=== PATIENT | female | born 1940 | race Caucasian/White ===

== ENCOUNTER 2016-09-24 21:57 | Observation (INO) | payer MEDICARE, BC ==
[~2016-09-24] VITALS: Ht 154.9 cm; Wt 109.7 kg
--- NOTE | ~2016-09-24 | ECH ---
Transthoracic Echocardiography Report (TTE) Demographics Patient Name FE BATISTA Date of Study 09/25/2016 Patient Number [id number] Visit Number [id number] Date of 1940 Room Number 418 Accession Number [id number] Gender Female Age 76 year(s) Referring Tom Rivero Rossy Veterinary Assistant Technician Kimi Bazan Physician RDCS Physician Interpreting Francisco Ellison MD Power Hammer Operator Physician Supervising Ordering Physician Almita PINZON MD/ERWIN Guzman Nurse Stress Rubber Belt Splicer Conclusions Summary Technically adequate exam. The estimated left ventricular ejection fraction is 60%. The left ventricle is moderately dilated . Diastolic assessment reveals Grade I diastolic dysfunction. Procedure Type of Study TTE procedure:Echo Complete SF. Procedure Date Date: 09/25/2016 Start: 03:36 PM Technical Quality: Adequate visualization Indications:Chest pain, Coronary artery disease and Hypertension. Additional Indications:History of stents Appropriate Use Criteria: 9 Height: 61 inches Weight: 241 pounds BSA: 2.04 m Rhythm: NSR HR: 72 bpm BP: 108/53 mmHg M-Mode/2D Measurements LV Diastolic Dimension: 5.82 cm LV Systolic Dimension: 4 cm LV Septum Diastolic: 0.81 cm LV PW Diastolic: 0.81 cm AO Root Dimension: 2.91 cm Cardiac Output: 5.43 l/min LA Dimension: 3.42 cm Cardiac Index: 2.66 l/min*m RV Diastolic Dimension: 1.93 cm LA volume index: 19 ml/m LVOT: 1.84 cm LVOT VTI: 28.38 cm RV Base: 2.6 cm LV Stroke volume: 75.43 ml RV Mid: 1.9 cm LV Stroke volume index: 36.98 ml/m TAPSE: 2.7 cm TDI-S': 15 cm/s Doppler Measurements AV Peak Velocity: 1.7 m/s MV Peak E-Wave: 0.88 m/s AV Peak Gradient: 11.56 mmHg MV Peak A-Wave: 1.08 m/s AV Mean Gradient: 5.29 mmHg MV E/A Ratio: 0.81 LVOT Peak Velocity: 1.32 m/s MV P1/2t: 58.9 msec AV Area (Continuity):2.78 cm MV Deceleration Time: 149.2 msec TR Velocity:2.13 m/s MV Area (PHT): 3.74 cm TR Gradient:18.23 mmHg PV Peak Velocity: 1.16 m/s Estimated RAP:3 mmHg PV Peak Gradient: 5.39 mmHg Estimated RVSP: 21 mmHg Estimated PASP: 21.23 mmHg E' Septal Velocity: 0.09 m/s A' Septal Velocity: 0.13 m/s E' Lateral Velocity: 0.08 m/s A' Lateral Velocity: 0.13 m/s RA Area: 10.69 cm Findings Left Ventricle The left ventricle is moderately dilated . Diastolic assessment reveals Grade I diastolic dysfunction. Right Ventricle Normal right ventricle structure and function. Left Atrium Normal left atrial size. Right Atrium Normal right atrial size. Mitral Valve Normal mitral valve structure and function. Trivial mitral regurgitation by color Doppler. Aortic Valve The aortic valve was not well imaged. Tricuspid Valve Normal tricuspid valve structure and function. Trivial tricuspid regurgitation by color Doppler. Normal pulmonary pressures. Pulmonic Valve The pulmonic valve is not well visualized. Pericardial Effusion No evidence of pericardial effusion. Miscellaneous Visualized portions of the aortic root and ascending aorta appear normal in size. Pleural Effusion No evidence of pleural effusion. Signature
[2016-09-26] MEDS ORDERED: PRILOSEC DPS20 MG PO (14:27)
[2016-09-26] MEDS ORDERED: SYNTHROID DP0.125 MG PO (14:27)
[2016-09-26] MEDS ORDERED: LISINOPRIL5 MG PO (14:28)
[2016-09-26] MEDS ORDERED: CELEBREX50 MG PO (14:28)
[2016-09-26] MEDS ORDERED: LEXAPRO DPS10 MG PO (14:28)
[2016-09-26] MEDS ORDERED: ASPIR 8181 MG PO (14:28)
[2016-09-26] MEDS ORDERED: MAALOX DPS30 ML PO (14:29)
--- NOTE | 2016-09-28 13:05 | CO ---
ADMIT: 09/25/2016 RM/LOC: 418 [facility] MR#: [id number] [id number] [place], [place] [address] DAYNA BATISTA [address] [place] [address] Consultation SEX: F AGE: 76 : 1940 CORRECTED: 09/25/2016 1820 vdg DATE OF CONSULTATION: 09/25/2016 ATTENDING PHYSICIAN: Josefa Santos CONSULTING PHYSICIAN: Thomas Recio MD REASON FOR CONSULT: Chest pain. Julienne Loya RN scribing for Thomas Recio MD HISTORY OF PRESENT ILLNESS: Dayna is a pleasant 76-year-old female, I have been asked to see in Cardiology consultation by Dr. Josefa Snatos for chest discomfort. She has no prior history of coronary artery disease but does have history of hypertension, former tobacco use and family history of premature coronary artery disease with her father dying of a myocardial infarction at the age of 62. She also had brother with congenital heart disease requiring heart transplant. Dayna presented to [facility] with complaints of chest discomfort. She described her symptoms starting about 4:30 yesterday while she was sowing in her basement. She had a sharp pain, stabbing into her chest, radiating to her back, followed by a burning sensation in the front as well. She also thought it radiated into her neck as well. She was short of breath with this. She denies any lightheadedness, palpitations, nausea, or diaphoresis. She stated that she tried to go upstairs, but she found it more difficult than usual. She did rest upstairs, she tried some Tums, which did not help her symptoms. She continued to remain so, she presented to the emergency room. In the ER, she was given nitroglycerin x2 which did help her symptoms somewhat. She also received GI cocktail at that time and then her pain resolved. Cardiac enzymes x2 have been negative. EKG looks okay. Her lab work is essentially normal. Vital signs have been stable. Currently, she is pain free at rest. PAST MEDICAL HISTORY: Hypertension, former tobacco use, gastroesophageal reflux disease, hypothyroidism, osteoarthritis, gallbladder disease status post cholecystectomy, cataract status post left cataract extraction. PAST SURGICAL HISTORY: Includes cholecystectomy, appendectomy, bilateral total knee arthroplasty, and left cataract extraction. ALLERGIES: NO KNOWN MEDICATION ALLERGIES. MEDICATIONS: Current medications include: 1. Omeprazole 20 daily. 2. Lexapro 10 daily. 3. Synthroid 125 mcg daily. 4. Lisinopril 5 daily. 5. Celebrex 200 daily. 6. Aspirin 81 mg daily. ADMIT: 09/25/2016 RM/LOC: 418 [facility] MR#: [id number] [address] [address] DAYNA BATISTA [address] [place] [address] Consultation SEX: F AGE: 76 : 1940 FAMILY HISTORY: Positive family history of coronary disease with father dying of a myocardial infarction at the age of 62, brother had a heart transplant due to congenital defect. Mom at the age of 95, mom had a history of diabetes. No family history of cancer or stroke. SOCIAL HISTORY: Dayna is . She lives at home with her . She is retired. She goes to exercise classes 2 times a week. She drinks two cups of coffee a day. She denies any special diet, alcohol, or drug use. She quit smoking around 2000 after starting at the age of 19. REVIEW OF SYSTEMS: GENERAL: Denies fatigue, fever, chills, sweats, rash, or weight loss. EYES: Left cataract extraction. She has history of corrective lens use. Denies glaucoma. THROAT, MOUTH, AND EARS: Some sinus congestion with allergies. No hearing loss or sore throat. PULMONARY: Denies cough, sputum production, asthma, emphysema or bronchitis. Denies snoring loudly, wakefulness at night, or fatigue upon awakening. GASTROINTESTINAL: History of gastroesophageal reflux disease. History of gallbladder extraction. Denies any hiatal hernia, stomach ulcer, or GI bleeding. GENITOURINARY: Denies dysuria, hematuria, nocturia, urinary tract infection, or kidney stones. Denies history of renal insufficiency or failure. MUSCULOSKELETAL: History of osteoarthritis. Denies gout or muscle pains. ENDOCRINE: Hypothyroidism. No diabetes. HEMATOLOGIC: Denies history of anemia, easy bruising, or cancer. NEUROLOGIC: Denies chronic headaches, dizziness, syncope, stroke, seizures or numbness or tingling. PSYCHIATRIC: Denies history of mental illness or feelings of depression. PHYSICAL EXAMINATION: VITAL SIGNS: Blood pressure 108/53, heart rate 62, respirations 16, temperature 97.2, oxygenation 93% on room. SKIN: [place], warm and dry. EYES: Sclerae clear. No xanthelasmas. ENT: Oral mucosa is pink and moist. No jugular venous distention or carotid bruits. CHEST: Respirations are even and unlabored. Lungs are clear to auscultation. HEART: Regular rate and rhythm. Normal S1, S2. No murmurs, rubs or gallops. ABDOMEN: Soft and nontender. MUSCULOSKELETAL: Gait is normal. EXTREMITIES: Mild left lower leg edema. PSYCHIATRIC: Alert and oriented. Mood and affect are appropriate. DIAGNOSTIC DATA: Sodium 142, potassium 4.2, BUN 18, creatinine 1.3, glucose 92, magnesium 2.4. Total cholesterol 138, triglycerides 112, HDL 54, LDL 62. TSH 1.35 and free T4 of 1.24. White blood cell count 11.0, hemoglobin 12.6, hematocrit 39.0, and platelets 245. CK 75, MB less than 0.5, troponin less ADMIT: 09/25/2016 RM/LOC: 418 [facility] MR#: [id number] [address] [address] ADYNA BATISTA [facility] [place] [address] Consultation SEX: F AGE: 76 : 1940 than 0.015 on second set. ASSESSMENT/PLAN: 1. Atypical chest pain. EKG and enzymes are negative. Her pain was relieved primarily with GI cocktail. I would like to check echocardiogram for any wall motion abnormalities, valvular abnormalities, or decreased ejection fraction. If this is normal, then I would recommend outpatient stress test with Lexiscan as she is unable to walk on a treadmill due to her significant bilateral knee arthritis. 2. Left leg pain and swelling. I would like to check venous duplex of her left lower extremity given the swelling and pain. 3. Gastroesophageal reflux disease on PPIs. 4. Obesity. 5. Osteoarthritis, on Celebrex. Thank you for the consultation. "I have read and agree with the documentation that has been completed regarding this visit. By signing this record, I attest that the documentation was completed in my physical presence and is an accurate record of the encounter." Julienne Loya RN / Thomas Recio MD / ayad JOB #: [id number] CC: Josefa Santos, Attending Physician Josefa Santos, Family Physician CORRECTED: 09/25/2016 1820 vdg
--- NOTE | 2016-10-02 08:40 | HP ---
ADMIT: 09/25/2016 RM/LOC: 418 [facility] MR#: [id number] [address] [address] DAYNA BATISTA [address] [facility] [place] [address] History and Physical SEX: F AGE: 76 : 1940 DATE OF SERVICE: CHIEF COMPLAINT: Chest pain. HISTORY OF PRESENT ILLNESS: Dayna is a 76-year-old obese female with a history of hypertension, who generally sees myself in our outpatient clinic for primary care, who presented to the Emergency Department overnight with chest pain. She said she was in usual state of health until yesterday afternoon around 4:00 p.m. when she was sewing and she had sudden onset of chest burning in the substernal area. She took some Tums and the chest pain did improve. She went to her daughter's house for dinner and ate barbecue, and when she returned home, she began sewing again and the pain returned. The pain was more intense this time. She describes it as a burning under the sternum and right breast. It radiated up into her right neck. She had no shortness of breath. No diaphoresis. No nausea or vomiting. Given the severity and recurrence of the pain, she thought best to have this evaluated. So, she was brought to the emergency department. Upon evaluation in the Emergency Department, she was given what sounds like a GI cocktail, and this did improve her pain as well. She has no prior history of coronary artery disease. She does have well-controlled hypertension. She has gastroesophageal reflux disease for which she takes omeprazole daily. She also has osteoarthritis and takes Celebrex daily for that. She does not take baby aspirin routinely due to her reflux disease and current NSAID use. This morning she is chest pain-free. PAST MEDICAL HISTORY: 1. Hypertension. 2. Osteoarthritis. 3. Obesity. 4. Major depressive disorder, in remission. 5. Gastroesophageal reflux disease. 6. Prediabetes. 7. Hypothyroidism. 8. Hypertension. MEDICATIONS: 1. Omeprazole 20 mg daily. 2. Lexapro 10 mg daily. 3. Levothyroxine 125 mcg daily. 4. Lisinopril 5 mg daily. 5. Celebrex 200 mg daily. ALLERGIES: BACTRIM CAUSES RASH. PAST SURGICAL HISTORY: History of appendectomy, cholecystectomy, and bilateral total knee replacement. FAMILY HISTORY: Significant for diabetes and thyroid disease. She also had heart disease in a brother and mother, and stroke in her father. ADMIT: 09/25/2016 RM/LOC: 418 [facility] MR#: [id number] [address] [address] DAYNA BATISTA [address] [place] [address] History and Physical SEX: F AGE: 76 : 1940 SOCIAL HISTORY: The patient is a former smoker, but quit greater than 10 years ago. She is retired and . She rarely drinks alcohol. She does drink caffeine routinely. REVIEW OF SYSTEMS: As per HPI. Otherwise, reviewed and negative. PHYSICAL EXAMINATION: VITAL SIGNS: Temperature 97.5, heart rate 63, respiratory rate 18, blood pressure 123/53, and oxygen saturation 94% on room air. GENERAL: The patient is obese. She is pleasant and cooperative. In no acute distress. Alert and oriented x3. HEENT: Within normal limits. HEART: Regular rate and rhythm. No murmurs. LUNGS: Clear to auscultation bilaterally. ABDOMEN: Obese, soft, nontender, nondistended. Normal bowel sounds. EXTREMITIES: Warm and dry. No edema. SKIN: No rash or lesion noted. NEUROLOGIC: Cranial nerves II through XII, grossly intact. No focal neurologic deficit. PSYCHIATRIC: Mood and affect are appropriate. LABORATORY DATA: Please see electronic record for full details, but of note, her troponin was less than 0.015 x2. Cholesterol was within normal limits. TSH was also controlled. EKG shows normal sinus rhythm with a heart rate of 72. Chest x-ray showed no acute cardiopulmonary findings. ASSESSMENT AND PLAN: ADMIT: 09/25/2016 RM/LOC: 418 [facility] MR#: [id number] [address] [address] DAYNA BATISTA [facility] [facility], [place] [address] History and Physical SEX: F AGE: 76 : 1940 1. Atypical chest pain likely secondary to gastroesophageal reflux disease. We will rule out acute coronary syndrome. Cardiology to ensure no further cardiac workup is necessary. 2. Gastroesophageal reflux disease. We will continue her PPI daily. 3. Hypertension, this is currently controlled. 4. Obesity, weight loss encouraged with healthy lifestyle. 5. Osteoarthritis, on chronic NSAIDs that is controlled. 6. Major depressive disorder. This is controlled with medication. 7. Hypothyroidism with TSH at goal. DISPOSITION: Once Cardiology evaluates the patient, we will plan for discharge likely later today. Josefa Santos MD/ ayad JOB #: [id number] CC: Josefa Santos, Attending Physician Josefa Santos, Family Physician
--- NOTE | 2016-10-29 15:38 | ER ---
ADMIT: 09/25/2016 RM/LOC: 418 [facility] MR#: [id number] [address] [facility] [address] [place], [place] [address] FE BATISTA [address] [place] [address] Emergency Room Report SEX: F AGE: 76 : 1940 DATE: 09/24/2016 HISTORY OF PRESENT ILLNESS: She came in to the Emergency Department with complaints of chest discomfort times past 6 hours described as gradual onset and constant. She is restless when started, moderate, changed the nature of the pain several times from a pressure given tightness to a burning, went through to her back. She says it hurt when she breath and hurt when she move. Her story changed multiple times. She said she has had similar symptoms in the past of heartburn, this was different with a pain and ache associated with this. PAST MEDICAL HISTORY: Significant for hypertension and GERD. PHYSICAL EXAMINATION: GENERAL: A 76-year-old female, in no acute distress. LUNGS: Clear to auscultation. CARDIOVASCULAR: Regular rate and rhythm. There was some mild tenderness in the chest to palpation, but she said that was not the pain she was having and another time she said it was. A cardiac workup was initiated, results of which were significant for a white count 11.0. Chest x-ray was unremarkable. EKG unremarkable. First set of enzymes were within normal limits. The patient was being admitted for chest pain rule out. Cale Jefferson MD/ ayad JOB #: [id number] CC: Josefa Santos MD, Attending Physician Josefa Santos MD, Family Physician
== END 2016-09-25 17:20 | disposition home or self-care (01) ==
LOC: ER 21:57 → 4PCU 09-25 02:00
DX: R07.89 Other chest pain (principal); K21.9 Gastro-esophageal reflux disease without esophagitis; I10 Essential (primary) hypertension; E66.9 Obesity, unspecified; M19.90 Unspecified osteoarthritis, unspecified site; E03.9 Hypothyroidism, unspecified; F32.9 Major depressive disorder, single episode, unspecified; R73.03 Prediabetes; Z90.49 Acquired absence of other specified parts of digestive tract; Z96.653 Presence of artificial knee joint, bilateral

== ENCOUNTER → 2016-10-17 | Outpatient (CLI) | payer MEDICARE, BC ==
[~2016-10-17] MED LIST: ASPIR 8181 MG PO; CELEBREX50 MG PO; LEXAPRO DPS10 MG PO; LISINOPRIL5 MG PO; MAALOX DPS30 ML PO; PRILOSEC DPS20 MG PO; SYNTHROID DP0.125 MG PO
== END | disposition home or self-care (01) ==
LOC: RAD.S 10-13 10:00
DX: Z12.31 Encounter for screening mammogram for malignant neoplasm of breast (principal); R92.1 Mammographic calcification found on diagnostic imaging of breast